=== PATIENT | male | born 1950 | race Caucasian/White ===

== ENCOUNTER 2022-11-29 08:59 | Inpatient (IN) | payer OTHER ==
[2022-11-25 10:01] LABS: BASOPHILS # (AUTO) 0.1 X10'3 (0-0.2); BASOPHILS % (AUTO) 1.3 % (0-1); EOSINOPHILS # (AUTO) 0.4 X10'3 (0-0.9); EOSINOPHILS % (AUTO) 6.4 % (0-6); LYMPHOCYTES % (AUTO) 17.8 % (21-51); MEAN CORPUSCULAR HEMOGLOBIN 33.2 PG (27.0-31.0); MEAN CORPUSCULAR HGB CONC 34.5 g/dL (33.0-36.5); MEAN CORPUSCULAR VOLUME 96.2 FL (78-98); MEAN PLATELET VOLUME 8.1 FL (7.4-10.4); MONOCYTES # (AUTO) 0.7 X10'3 (0-0.9); MONOCYTES % (AUTO) 12.8 % (2-12); NEUTROPHILS # (AUTO) 3.5 X10'3 (1.8-7.7); NEUTROPHILS % (AUTO) 61.7 % (42-75); PRE OP HEMATOCRIT 43.2 % (42.0-52.0); PRE OP HEMOGLOBIN 14.9 g/dL (14.0-17.9); PRE OP PLATELET COUNT 157 X10'3 (140-440); PRE OP WHITE BLOOD COUNT 5.7 10'3 (4.8-10.8); RED CELL DISTRIBUTION WIDTH 13.8 % (11.5-14.5)
[2022-11-25 10:24] LABS: ALBUMIN 3.7 G/DL (3.4-5.0); ALBUMIN/GLOBULIN RATIO 1.4 (1.1-1.5); ALKALINE PHOSPHATASE 83 IU/L (46-116); BLOOD UREA NITROGEN 21 MG/DL (7-18); BUN/CREATININE RATIO 21.4 (10.0-20.0); CALCIUM 9.2 MG/DL (8.5-10.1); CHLORIDE 106 MMOL/L (99-107); CREATININE 0.98 MG/DL (0.60-1.10); PRE OP ALT 35 U/L (30-65); PRE OP ANION GAP 8 (8-16); PRE OP AST 22 U/L (10-37); PRE OP BILIRUB, TOTAL 1.1 MG/DL (0.0-1.0); PRE OP GLUCOSE 143 MG/DL (70-104); PRE OP POTASSIUM 3.8 MMOL/L (3.4-5.1); PRE OP SODIUM 140 MMOL/L (135-145); TOTAL CARBON DIOXIDE 25.8 MMOL/L (24-32); TOTAL PROTEIN 6.3 G/DL (6.4-8.2); eGFR 75 ML/MIN
[~2022-11-29] VITALS: Ht 180.3 cm; Wt 83.4 kg
[2022-11-29] VITALS (30 sets, daily range): BP systolic 102–156; BP diastolic 57–86; PULSE 48–67; RESP 10–18; TEMP 97.3–98.2; O2SAT 94–100
--- NOTE | 2022-11-29 06:30 | NUR ---
PT STATES HE READ THE INFORMATION ON TOTAL JOINT REPLACEMENT FOR SHOULDERS, BATHED AND USED BACTROBAN OINTMENT FOR THE LAST 5 DAYS AND DENIES DECREASED SENSATION OF RIGHT ARM, RADIAL PULSE PALPABLE 2(+). Addendum: 11/29/22 at 1116 by Sherry Sullivan RN Amended: Links added.
[~2022-11-29 08:59] MED LIST: ATOR20TA PO; CYAN250014; cefazolin 2gm/D5W 100mL 100 ML IV ONE; famotidine 20mg tablet PO ONE; ringers solution, lacted 1,000 ML IV SCH; tranexamic acid 650mg tablet PO ONE; vancomycin 1,500 MG in NS 300ml IV soln IV ONE
[2022-11-29] MEDS ORDERED: ROPIVAcaine 0.5% (5mg/ml) 30ml vial ONE ×2 (11:06→12:51)
[2022-11-29] MEDS ORDERED: ketorolac trometh. 30mg/ml inj. ONE (11:06)
[2022-11-29] MEDS ORDERED: midazolam 1 mg/ML 2ml injection ONE (11:13)
[2022-11-29] MEDS ORDERED: fentaNYL/PF 50MCG/1 ML 2ML syringe ONE (11:13)
[2022-11-29] MEDS ORDERED: ondansetron/PF 4mg/2ml inj IV PRN ×2 (11:25→13:55)
[2022-11-29] MEDS ORDERED: ROPIVAcaine 0.2%/PF PUMP/bolus 545 ML INTERSCALE SCH (11:25)
[2022-11-29] MEDS ORDERED: ringers solution, lacted 1,000 ML IV SCH (11:25)
[2022-11-29] MEDS ORDERED: glycopyrrolate 0.2mg/ml inj ONE (11:25)
[2022-11-29] MEDS ORDERED: sevoflurane 250ml liquid IH ONE (11:25)
[2022-11-29] MEDS ORDERED: morphine 2 MG/ML inj. syringe IV PRN (11:25)
[2022-11-29] MEDS ORDERED: HYDROmorphone/PF 0.2 MG/ML SYRINGE IV PRN ×2 (11:25)
[2022-11-29] MEDS ORDERED: ROPIVAcaine 0.2% (10 MG/5 ML) BOLUS INJECTION INTERSCALE PRN (11:25)
[2022-11-29] MEDS ORDERED: propofol inj 20 ML IV ONE (12:51)
[2022-11-29] MEDS ORDERED: dexamethasone sod phosphate 4mg/ml inj. ONE (12:51)
[2022-11-29] MEDS ORDERED: ondansetron/PF 4mg/2ml inj ONE (12:51)
[2022-11-29] MEDS ORDERED: acetaminophen 1,000mg/100ml IV 100 ML IV ONE (12:56)
--- NOTE | 2022-11-29 13:07 | NUR ---
Received from OR via BED , accompanied by Anesthesiologist DR RAMIREZ and report given by Anesthesiologist AND DIMPLING MACHINE OPERATOR. PT DROWSY, DENIES PAIN. RIGHT SHOULDER W/SHOULDER WRAP, DAVON CDI, ARM IN SLING, POWDER PACK. PT ABLE TO MOVE FINGERS. INTERSCALENE CATHETER INTACT FOR ON-Q. Addendum: 11/29/22 at 1322 by Sherry Sullivan RN Amended: Links added.
[2022-11-29] MEDS ORDERED: magnesium hydroxide 30ml (MOM) UD suspension PO PRN (13:55)
[2022-11-29] MEDS ORDERED: HYDROmorphone inj. 0.5 MG/0.5 ML DISP.SYRIN IV PRN (13:55)
[2022-11-29] MEDS ORDERED: diphenhydrAMINE 25mg capsule PO PRN ×2 (13:55)
[2022-11-29] MEDS ORDERED: naloxone 0.4 mg/ml inj IV PRN (13:55)
[2022-11-29] MEDS ORDERED: HYDROcodone/acetaminophen 10/325mg tab PO PRN ×2 (13:55)
[2022-11-29] MEDS ORDERED: HYDROmorphone 1 mg/ml syringe IV PRN (13:55)
[2022-11-29] MEDS ORDERED: bisacodyl 10mg suppository rectal RC PRN (13:55)
[2022-11-29] MEDS ORDERED: acetaminophen 325mg tablet PO PRN (13:55)
[2022-11-29] MEDS: acetaminophen 325mg tablet PO SCH ×2 (14:00→19:22)
--- NOTE | 2022-11-29 16:17 | NUR ---
PT TRANSFERRED TO ROOM 4015A PER MD ORDERS. REPORT GIVEN TO [place], ALL QUESTIONS, COMMENTS, AND CONCERNS WERE ANSWERED AT THIS TIME. VSS, NO C/O PAIN OR NAUSEA. RIGHT SHOULDER DRESSING CDI. CRN NURSE AWARE OF PATIENT TRANSFERRED AND THEY WILL HOOK HIM UP TO POST OP VS. CALL LIGHT IN HAND, BLL, PERSONAL BELONGINGS WITH PATIENT. PATIENTS ASHA WAS NOTIFIED OF THE TRANSFER.
--- NOTE | 2022-11-29 17:46 | NUR ---
RECEIVED PATIENT FROM RECOVERY. POST OPP VITAL SET UP. PATIENT DENIES ANY PAIN AT THIS TIME. VITAL SIGNS STABLE. CONTINUES TO RUN LIZ. URINAL AT BEDSIDE WILL REPORT TO NIGHT NURSE.
--- NOTE | 2022-11-29 18:00 | NUR ---
I have reviewed and agree with interventions, assessments, and documentation by Sophie Fontanez LVN.
--- NOTE | 2022-11-29 18:30 | NUR ---
Patient in room ORTHO 4006. I have received report from Sophie NORRIS and had the opportunity to ask questions and assume patient care.
[2022-11-29] MEDS: potassium cl 20mEq in 1/2 NS 1,000 ML IV SCH ×2 (19:02→23:12)
--- NOTE | 2022-11-29 19:09 | NUR ---
focused medicaid biller. pt sitting in bed. finished dinner. s.o. at bedside. sling left arm, island dressing anterior arm CDI. onQ at 4. pt able to move all fingers, but numbness to all but thumb at this time. normal heart, lungs and bowel sounds. no distress noted. ice pack changed. iv infusing w/o difficulty.
[2022-11-29] MEDS: ceFAZolin/D5W- 1GM premix 50 ML IV SCH (19:22)
[2022-11-29] MEDS ORDERED: vancomycin/NS 1 GM ADD-VANTAGE 250 ML IV SCH (20:00)
[2022-11-29] MEDS ORDERED: sennosides 8.6mg tablet PO SCH (21:00)
[2022-11-29] MEDS ORDERED: atorvastatin 20mg tablet PO SCH (21:00)
[2022-11-30 02:00] VITALS: BP 111/51; PULSE 53; RESP 18; TEMP 98.3; O2SAT 94
[2022-11-30] MEDS: acetaminophen 325mg tablet PO SCH ×2 (02:35→08:02)
[2022-11-30] MEDS: ceFAZolin/D5W- 1GM premix 50 ML IV SCH (02:35)
[2022-11-30] MEDS: potassium cl 20mEq in 1/2 NS 1,000 ML IV SCH (05:54)
[2022-11-30 06:00] VITALS: BP 115/52; PULSE 56; RESP 16; TEMP 98.1; O2SAT 97
--- NOTE | 2022-11-30 06:36 | NUR ---
Problems reprioritized. Patient report given, questions answered & plan of care reviewed with Nnamdi NORRIS.
[2022-11-30 06:53] LABS: BASOPHILS % (AUTO) 0.3 % (0-1); EOSINOPHILS % (AUTO) 0.1 % (0-6); HEMATOCRIT 39.1 % (42.0-52.0); HEMOGLOBIN 13.4 g/dl (14.0-17.9); LYMPHOCYTES % (AUTO) 8.4 % (21-51); MEAN CORPUSCULAR HGB CONC 34.1 g/dL (33.0-36.5); MEAN CORPUSCULAR VOLUME 96.6 FL (78-98); MEAN PLATELET VOLUME 8.6 FL (7.4-10.4); MONOCYTES # (AUTO) 1.2 X10'3 (0-0.9); MONOCYTES % (AUTO) 10.5 % (2-12); NEUTROPHILS # (AUTO) 9.4 X10'3 (1.8-7.7); NEUTROPHILS % (AUTO) 80.7 % (42-75); PLATELET COUNT 178 X10'3 (140-440); RED BLOOD COUNT 4.05 X10'6 (4.70-6.10); RED CELL DISTRIBUTION WIDTH 13.6 % (11.5-14.5); WHITE BLOOD COUNT 11.6 X10'3 (4.5-11.0)
[2022-11-30 07:44] LABS: ANION GAP 9 (8-16); CHLORIDE 105 MMOL/L (99-107); POTASSIUM 4.3 MMOL/L (3.5-5.1); SODIUM 136 MMOL/L (135-145)
[2022-11-30 08:00] VITALS: RESP 16; O2SAT 97
[2022-11-30] MEDS ORDERED: aspirin 325mg tablet PO SCH (08:30)
--- NOTE | 2022-11-30 10:45 | NUR ---
Patient discharged home with via POV. All personal belongings sent with. DRSG CDI, PIV discontinued, tip intact. Patient alert and appropriate at the time of discharge.
--- NOTE | 2022-11-30 18:45 | NUR ---
Joint surgery consult: Pt admit for shoulder surgery per EMR. Pt discharged this am thus unable to provide high protein nutrition education in person. Mailed written high protein education to pt's address found in EMR. Addendum: 11/30/22 at [address] Amended: Links added.
[2022-12-01] MEDS ORDERED: acetaminophen 325mg tablet PO PRN (13:55)
== END 2022-11-30 10:45 | disposition home or self-care (01) | DRG 483 ==
LOC: PAS IN 08:59 → ORTHO 4S 16:39
PROVIDERS: ADMIT Orthopaedic Surgery; ATTEND Orthopaedic Surgery
PROC: 0RRJ00Z Replacement of Right Shoulder Joint with Reverse Ball and Socket Synthetic Substitute, Open Approach (ICD-10-PCS; principal; 2022-11-29 11:25)
DX: S42.141A Displaced fracture of glenoid cavity of scapula, right shoulder, initial encounter for closed fracture (principal); M19.011 Primary osteoarthritis, right shoulder; M75.121 Complete rotator cuff tear or rupture of right shoulder, not specified as traumatic; Z87.39 Personal history of other diseases of the musculoskeletal system and connective tissue
CPT/HCPCS: 36415; 80051; 80053; 82948; 85025; 87081; 97161; 97530; A4565; A4618; A7000; C1776; G0378; J0131; J0690; J1100; J1885; J2250; J2405; J2704; J2795; J3010; J3370; J3480; J3490; J7120

== ENCOUNTER 2023-03-22 11:08 | Day surgery (SDC) | payer OTHER ==
[~2023-03-22] VITALS: Ht 180.3 cm; Wt 87.0 kg
[~2023-03-22 11:08] MED LIST changes: -cefazolin 2gm/D5W 100mL 100 ML IV ONE; -famotidine 20mg tablet PO ONE; -ringers solution, lacted 1,000 ML IV SCH; -tranexamic acid 650mg tablet PO ONE; -vancomycin 1,500 MG in NS 300ml IV soln IV ONE
[2023-03-22 11:30] VITALS: RESP 15; O2SAT 96
[2023-03-22 11:36] VITALS: BP 129/69; PULSE 61; RESP 15; TEMP 98.1; O2SAT 97
[2023-03-22] MEDS ORDERED: FLO0.4C PO (11:44)
[2023-03-22] MEDS ORDERED: SILD50TA PO (11:44)
[2023-03-22 12:38] VITALS: BP 127/52; PULSE 48; RESP 15; O2SAT 97
[2023-03-22 12:53] VITALS: BP 123/76; PULSE 54; RESP 16; O2SAT 97
[2023-03-22 13:08] VITALS: BP 121/67; PULSE 52; RESP 15; O2SAT 98
== END 2023-03-22 13:20 | disposition home or self-care (01) ==
LOC: SSTAY O 11:08
PROVIDERS: ATTEND Radiology Vascular & Interventional Radiology
DX: R59.0 Localized enlarged lymph nodes (principal); C83.35 Diffuse large B-cell lymphoma, lymph nodes of inguinal region and lower limb
CPT/HCPCS: 10005; 38505; 76942